=== PATIENT | female | born 1990 | race Caucasian/White ===

== ENCOUNTER 2016-08-25 23:52 | Emergency (ER) | payer OTHER ==
[2016-08-26 02:31] LABS: HEMOGLOBIN 13.3 gm/dl (12.3-15.3); RED BLOOD COUNT 4.69 M/UL (4.00-5.10); WHITE BLOOD COUNT 11.5 K/UL (4.5-11.0)
[2016-08-26 02:48] LABS: BUN/CREATININE RATIO 19 (0-10)
== END 2016-08-26 04:20 | disposition home or self-care (01) ==
LOC: ER1 23:52
PROVIDERS: Student in an Organized Health Care Education/Training Program
DX: N13.5 Crossing vessel and stricture of ureter without hydronephrosis (principal)
CPT/HCPCS: 36415; 80053; 81001; 82150; 83690; 84703; 85025; 96361; 96374; 96375; 99284; J1885; J2405; J7030